=== PATIENT | female | born 1940 | race Caucasian/White ===

== ENCOUNTER → 2016-12-25 | Outpatient (CLI) | payer OTHER, BC | LOC: CAT 09:28 | DX: J44.1 Chronic obstructive pulmonary disease with (acute) exacerbation (principal); R91.1 Solitary pulmonary nodule ==

== ENCOUNTER → 2017-03-27 | Outpatient (CLI) | payer OTHER, BC | LOC: CAT 10:17 | DX: R06.00 Dyspnea, unspecified (principal); R91.1 Solitary pulmonary nodule ==

== ENCOUNTER → 2017-08-02 | Outpatient (CLI) | payer OTHER, BC | LOC: CAT 10:00 | DX: J98.11 Atelectasis (principal); R91.1 Solitary pulmonary nodule ==

== ENCOUNTER → 2017-11-07 | Outpatient (CLI) | payer OTHER, BC | LOC: CAT 10:03 | DX: J43.9 Emphysema, unspecified (principal); R91.1 Solitary pulmonary nodule ==

== ENCOUNTER → 2018-03-20 | Outpatient (CLI) | payer OTHER, BC | LOC: CAT 09:51 | DX: R91.1 Solitary pulmonary nodule (principal); R06.00 Dyspnea, unspecified ==

== ENCOUNTER 2018-09-15 09:29 | Emergency (ER) | payer BC ==
[~2018-09-15] VITALS: Ht 160 cm; Wt 69.0 kg
[2018-09-15] MEDS ORDERED: DIOVAN160 MG PO (09:45)
[2018-09-15] MEDS ORDERED: TRELEGY ELLIPT1 EACH INH (09:45)
[2018-09-15] MEDS ORDERED: PROAIR HFA8.5 GM (09:46)
[2018-09-15] MEDS ORDERED: SPIRONOLACTONE25 M1 PO (09:46)
[2018-09-15] MEDS ORDERED: MUCINEX600 MG PO (09:47)
[2018-09-15] MEDS ORDERED: CENTRUM SILVER1 EAC4 PO (09:47)
[2018-09-15] MEDS ORDERED: VITAMIN B-12500 MCG PO (09:47)
[2018-09-15] MEDS ORDERED: ALL DAY ALLERGY10 M3 PO (09:47)
[2018-09-15] MEDS ORDERED: BETAMETHASONE D50 G2 TOP (09:49)
[2018-09-15] MEDS ORDERED: FLUOROURACIL40 GM (09:49)
[2018-09-15 10:53] VITALS: BP 144/51
[2018-09-15] MEDS ORDERED: ULTRAM 50MG TAB50 MG PO (11:03)
[2018-09-15] MEDS ORDERED: TIZANIDINE HCL4 MG PO (11:03)
== END 2018-09-15 11:14 | disposition home or self-care (01) ==
LOC: ER 09:29
DX: S20.229A Contusion of unspecified back wall of thorax, initial encounter (principal); Z98.890 Other specified postprocedural states; W00.0XXA Fall on same level due to ice and snow, initial encounter; Y93.89 Activity, other specified; Y92.89 Other specified places as the place of occurrence of the external cause; Y99.8 Other external cause status

== ENCOUNTER 2018-09-18 15:40 | Inpatient (IN) | payer BC ==
[~2018-09-18] VITALS: Ht 160 cm; Wt 68.5 kg
[~2018-09-18 15:40] MED LIST: ALL DAY ALLERGY10 M3 PO; BETAMETHASONE D50 G2 TOP; CENTRUM SILVER1 EAC4 PO; DIOVAN160 MG PO; FLUOROURACIL40 GM; MUCINEX600 MG PO; PROAIR HFA8.5 GM; SPIRONOLACTONE25 M1 PO; TIZANIDINE HCL4 MG PO; TRELEGY ELLIPT1 EACH INH; ULTRAM 50MG TAB50 MG PO; VITAMIN B-12500 MCG PO
[2018-09-18 16:13] LABS: ABSOLUTE NEUTROPHILS 8.7 thou/uL (1.4-8.2); BASOPHILS 0.5 % (0.0-2.0); EOSINOPHILS 1.4 % (0.0-3.0); HEMATOCRIT 36.9 % (37.0-47.0); HEMOGLOBIN 12.8 gm/dL (12.0-15.0); LYMPHOCYTES 12.1 % (24.0-44.0); MCH 32.5 pg (26.0-34.0); MCHC 34.7 g/dL (28.0-37.0); MCV 93.5 fL (80.0-100.0); MONOCYTES 9.1 % (1.0-8.0); PLATELET COUNT 161 thou/uL (150-400); POLYS 76.9 % (36.0-66.0); RBC 3.95 mil/uL (4.20-5.00); RDW 12.4 % (10.5-14.5); WBC 11.3 thou/uL (4.0-11.0)
[2018-09-18 16:16] LABS: CALCIUM 8.8 mg/dL (8.5-10.1); CREATININE 2.8 mg/dL (0.6-1.0)
[2018-09-18 16:21] LABS: ALBUMIN 3.4 g/dL (3.4-5.0); DIRECT BILIRUBIN 0.1 mg/dL (<0.1-0.3); TOTAL BILIRUBIN 0.4 mg/dL (<0.1-1.0); TOTAL PROTEIN 7.4 g/dL (6.4-8.2)
[2018-09-18 17:34] VITALS: BP 143/52
[2018-09-18 18:16] VITALS: BP 114/54
[2018-09-18 20:30] VITALS: BP 137/59
--- NOTE | 2018-09-19 01:21 | NUR ---
Assumed care of pt at 1900. Pt alert and oriented x4. C/o pain in lower back. supervisor filtration notified and new orders noted. Heating pad ordered for back pain as well. Pt tried to eat dinner but was unable to keep it down for long. States she has had the pain and n/v since Friday 09/15. Will continue to monitor and assist with needs.
[2018-09-19 04:30] VITALS: BP 133/47
[2018-09-19 05:45] LABS: CALCIUM 8.1 mg/dL (8.5-10.1); CREATININE 2.1 mg/dL (0.6-1.0)
[2018-09-19 07:00] VITALS: BP 121/53
--- NOTE | 2018-09-19 10:43 | NUR ---
PT ADMITTED RELATED TO FALL,INTRACTABLE N/V,DEHYDRATION. CM REVIEWED CHART AND SPOKE WITH CARE TEAM. CM MET WITH PT AND GRANDTR MARY AT BEDSIDE THIS DAY. PT IS A&O X4. CM ROLE INTORDUCED. PT INDICATED SHE LIVES IN A HOUSE WITH HER GRANDTR WITH 2 STEPS TO ENTER AND NO STEPS INSIDE. 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 PT INDICATED NO DME OR HH HX. PT INDICATED SHE PLANS TO RETURN HOME ONCE MEDICALLY STABLE. CM TO FOLLOW INDICATED WITH DC PLANNING.
--- NOTE | 2018-09-19 14:42 | NUR ---
ASSUMED PT CARE AT 0700. PT A&O X4. PT STATED NO N/V. PT STATES PAIN WHILE MOVING. PT TOLERATES MEDS. PT ABLE TO AMBULATE TO BATHROOM AND HALLWAY. PT ON STANDBY ASSIST. PT DESATS ON AMBULATION AND CURRENTLY ON NC AT 2.0L. PT CALL LIGHT WITHIN REACH AND CONTINUES TO BE MONITORED FOR SAFETY.
[2018-09-19 16:20] VITALS: BP 122/47
[2018-09-19 21:45] VITALS: BP 126/50
--- NOTE | 2018-09-20 01:19 | NUR ---
Assumed care of pt at 1900. Pt a&o x4. Prn pain meds administered due to c/o back pain. Pt requests a lidocaine patch to be ordered. termination clerk notified and new order noted. SBA to the restroom. Pt home oitments administered on nose and right foot. Will continue to monitor and assist with needs.
[2018-09-20 04:15] VITALS: BP 150/73
[2018-09-20 05:46] LABS: CALCIUM 8.5 mg/dL (8.5-10.1); CREATININE 1.2 mg/dL (0.6-1.0); POTASSIUM 3.7 mmol/L (3.5-5.1)
--- NOTE | 2018-09-20 07:39 | NUR ---
ASSUMED PT CARE AT APPROX 0300.PT UP WITH SBA.ON 2L/NC.PER RT,PT REQUESTED FOR HER INHALER AND AM NURSE HAS BEEN UPDATED TO CALL PHYSICIAN FOR AN ALTERNATIVE SINCE THIS FACILITY DOESN'T CARRY WHAT SHE IS ON.PT CONT ON IVF.NO CONCERNS NOTED.
[2018-09-20 08:15] VITALS: BP 155/47
--- NOTE | 2018-09-20 09:33 | NUR ---
PT IS A&0X4, C/O MID BACK, ASKS FOR PAIN MEDICATION, ENCOURAGED HER WITH TRYING TO PASS THIS MED FREQUENTLY PRESCRIBED, ENCOURAGED HER TO USE CALL LIGHT FOR ANY NEEDS, FAMILY VISITING, PT SHOWERING, AMB STEADY.
[2018-09-20] MEDS ORDERED: HYDROCODONE-AP1 EAC6 PO (11:50)
[2018-09-20 12:33] VITALS: BP 155/47
--- NOTE | 2018-09-20 15:55 | NUR ---
PT D/C'D IN W/C WITH DAUGHTER AND STAFF, AND MED HELD IN XIS (SIGNED PAPER SHOWING RECEIPT) SUCCESSFULLY EARLIER IN THE DAY
== END 2018-09-20 13:30 | disposition home or self-care (01) | DRG 684 ==
LOC: ER 15:40 → 4E 17:15 → EROBS 17:15 → 4E 18:41
PROVIDERS: Nurse Practitioner; ADMIT Family Medicine
DX: N17.9 Acute kidney failure, unspecified (principal); E86.0 Dehydration; F17.210 Nicotine dependence, cigarettes, uncomplicated; M81.0 Age-related osteoporosis without current pathological fracture; Z98.42 Cataract extraction status, left eye; Z98.41 Cataract extraction status, right eye; Z79.899 Other long term (current) drug therapy
CPT/HCPCS: 10783

== ENCOUNTER 2018-10-02 06:39 | Inpatient (IN) | payer BC ==
[~2018-10-02] VITALS: Ht 160 cm; Wt 70.3 kg
--- NOTE | ~2018-10-02 | P ---
[facility] [place] [address] PROCEDURE REPORT Name: ADDY SOMMERSALDMARCOS Epstein Room #: 220-P [facility] IN M.R.#: [id number] Admission: 10/02/18 Attend Phys: Osiel Watson MD Discharge: Date of : 42 Report #: [id number] THIS REPORT FOR: //name// CC: Osiel Watson MD DATE OF SERVICE: 10/03/2018 BRIEF HISTORY: The patient is a 78-year-old woman who had a fall on the ice 3 weeks ago. She had been taking ibuprofen and Tylenol No. 3 for pain. She also had been using ibuprofen. She subsequently developed problems with nausea and vomiting as well as chest pressure. She also developed some pleural effusion requiring thoracentesis. PREOPERATIVE DIAGNOSIS: Dysphagia and chest pressure. POSTOPERATIVE DIAGNOSES: 1. Moderate Alberto esophagitis. 2. Diffuse gastritis. MEDICATIONS: Deep sedation with propofol per anesthesia. SPECIMENS: 1. Biopsies, gastric mucosa, rule out H. pylori. 2. Brushing esophagus, rule out candidiasis. ESTIMATED BLOOD LOSS: 3 mL. PROCEDURE: EGD with biopsy and esophageal brushing. FINDINGS: Prior to propofol sedation, the procedure of upper endoscopy was discussed with the patient as well as potential risks, benefits and complications. She indicates she understands and desires to proceed. DESCRIPTION OF PROCEDURE: With the patient in the left lateral decubitus position, the Olympus video endoscope was inserted in the cervical esophagus under direct vision without difficulty. Examination of the esophagus throughout its entire length revealed moderate whitish plaque-like material throughout the mid and distal esophagus consistent with diffuse Alberto esophagitis. The intervening mucosa was normal. I did not see any ulcers, erosions, strictures or masses. The scope was advanced and she was noted to have a 2-3 cm sliding type hiatus hernia. The mucosa and hernia was unremarkable. The scope was advanced into the stomach, which was examined on end view as well as retroflexed views. There was erythema in the antrum, a few scattered erosions were seen in the antrum. No ulcers were seen. Upon retroflexion, no abnormalities were seen. The pylorus, duodenal bulb and postbulbar sweep were all inspected and [facility] [address] [place] [address] PROCEDURE REPORT Name: LORRAINE SOMMERS Room #: 220-P [facility] IN [facility].#: [id number] Admission: 10/02/18 Attend Phys: Osiel Watson MD Discharge: Date of : 42 Report #: [id number] noted to be unremarkable. At that point, scope was slowly withdrawn and careful circumferential views were obtained. Biopsies were obtained of the gastritis and brushings obtained of the alberto. DISPOSITION: The patient with difficulty swallowing and some discomfort with swallowing as well as chest pressure. She has an exudative process consistent with candidiasis. She had no symptoms prior to her fall. The etiology of her candidiasis is not entirely clear. However, it is noted she does use fluticasone, which may put her at risk. We will start her on Diflucan and follow up on brushings. Since she does use fluticasone, it is not clear if this is related to her recent fall. By: 1201 [id number] Colt Garcia MD /nt
[2018-10-02 06:39] VITALS: BP 188/86
[~2018-10-02 06:39] MED LIST changes: +HYDROCODONE-AP1 EAC6 PO
[2018-10-02 08:07] LABS: ABSOLUTE NEUTROPHILS 10.3 thou/uL (1.4-8.2); BASOPHILS 0.6 % (0.0-2.0); EOSINOPHILS 1.8 % (0.0-3.0); HEMOGLOBIN 12.5 gm/dL (12.0-15.0); LYMPHOCYTES 11.2 % (24.0-44.0); MCH 32.4 pg (26.0-34.0); MCHC 34.6 g/dL (28.0-37.0); MCV 93.6 fL (80.0-100.0); MONOCYTES 8.6 % (1.0-8.0); PLATELET COUNT 268 thou/uL (150-400); POLYS 77.8 % (36.0-66.0); RBC 3.85 mil/uL (4.20-5.00); RDW 13.2 % (10.5-14.5); WBC 13.2 thou/uL (4.0-11.0)
[2018-10-02 08:14] LABS: ANION GAP 11 mmol/L (7-16); BUN 8 mg/dL (7-18); CALCIUM 9.8 mg/dL (8.5-10.1); CHLORIDE 102 mmol/L (98-107); CO2 28 mmol/L (21-32); CREATININE 0.8 mg/dL (0.6-1.0); GLUCOSE 106 mg/dL (74-106); SODIUM 141 mmol/L (136-145)
[2018-10-02 08:22] LABS: ALBUMIN 3.7 g/dL (3.4-5.0); LIPASE 54 U/L (73-393); SGOT 28 U/L (15-37); SGPT 22 U/L (30-65); TOTAL BILIRUBIN 0.7 mg/dL (<0.1-1.0); TOTAL PROTEIN 7.5 g/dL (6.4-8.2); TROPONIN-I <0.06 ng/mL (<0.06)
[2018-10-02 08:47] LABS: URINE BILIRUBIN NEGATIVE (Negative); URINE BLOOD TRACE (Negative); URINE CLARITY CLEAR; URINE COLOR YELLOW; URINE GLUCOSE-RANDOM* NEGATIVE (Negative); URINE KETONES TRACE (Negative); URINE LEUKOCYTES-REFLEX NEGATIVE (Negative); URINE NITRITE-REFLEX NEGATIVE (Negative); URINE PROTEIN (DIPSTICK) NEGATIVE (Negative); URINE UROBILINOGEN 0.2 E.U./dl (0.2-1.0)
--- NOTE | 2018-10-02 09:24 | EKG ---
[address] [address] [place] [address] ELECTROCARDIOGRAM REPORT Name: LORRAINE SOMMERS [id number] Admission: 10/02/18 Attend Phys: Discharge: Date of : 42 Report #: [id number] THIS REPORT FOR: //name// [facility] ED Test Date: 2018-10-02 Test Time: 08:14:39 Pat Name: LORRAINE SOMMERS Department: Room: Gender: F Political Cartoonist: : 1940 Requested By: Eze Crow Order Number: [id number] MD: Caleb Lopez Measurements Intervals [place] Rate: 85 P: 85 [place]: 151 QRS: 91 QRSD: 78 T: 55 QT: 375 QTc: 446 Interpretive Statements Sinus rhythm with atrial premature complexes Anterior infarct, age indeterminate No previous ECG available for comparison Electronically Signed On 10-02-2018 9:23:50 COMPUTER EDUCATION TEACHER by Caleb Lopez [email or web address] <ELECTRONICALLY SIGNED> By: Caleb Lopez MD, [facility] 10/02/18 0923 0814 3 Caleb Lopez MD, FACC /EPI
[2018-10-02 10:45] VITALS: BP 163/68
[2018-10-02 11:04] VITALS: BP 116/61
--- NOTE | 2018-10-02 11:18 | NUR ---
CALLED 4E TO GIVE REPORT AT 1115 WAS ASKED TO CALL BACK IN 10-15 MIN
[2018-10-02 11:44] VITALS: BP 185/87
--- NOTE | 2018-10-02 12:39 | NUR ---
PT ARRIVED ON UNIT FROM ED AT 1200. PT WAS A/OX4 WITH NO ISSUES OR CONCERNS AT THIS TIME. PT HAS NO COMPLAINTS OF PAIN. WILL CONTINUE TO MONITOR PT. AWAITING ON US
[2018-10-02 15:07] LABS: INR 1.1; PROTIME 11.3 Seconds (9.3-11.4)
[2018-10-02 16:12] LABS: CLARITY CLOUDY; COLOR YELLOW; SOURCE RIGHT CHEST; TOTAL VOLUME 60 mL
[2018-10-02 16:33] LABS: BF NUCLEATED CELLS 1185; BF RBC 668
[2018-10-02 16:34] VITALS: BP 153/63
[2018-10-02 17:37] LABS: BF MACROPHAGE 22; BF NEUTROPHILS 14
[2018-10-02 19:38] VITALS: BP 183/84
--- NOTE | 2018-10-02 23:52 | NUR ---
pt is alert and oriented x4 , presents with a pleasant affect,slightly anxious due to shortness of breath especially after activities. reports upper abdominal pain and has utilized tylenol,needs stand by assist with adls, reports poor appetite,last bm three days ago.had scheduled egd ,continues of ivf,oxygen at 2l/nc. pt had thoracentesis on today,site clean with no bleading.
[2018-10-03 06:24] LABS: HEMATOCRIT 35.2 % (37.0-47.0); MCV 94.1 fL (80.0-100.0); RBC 3.74 mil/uL (4.20-5.00); RDW 13.1 % (10.5-14.5); WBC 9.8 thou/uL (4.0-11.0)
[2018-10-03 07:08] VITALS: BP 157/75
--- NOTE | 2018-10-03 11:03 | NUR ---
ASSUMED CARE OF PATIENT THIS MORNING. PATIENT IS A&OX4. SHE IS UP WITH STANDBY ASSISTANCE. EGD SCHEDULED FOR THIS MORNING AND PATIENT CURRENTLY OFF UNIT FOR PROCEDURE. RIGHT AC IV IS CURRENTLY SALINE LOCKED. SHE IS ON 2 LITER OF O2. PATIENT CURRENTLY NPO AND ALL MORNING MEDICATIONS WERE HELD. PATIENT HAS DIMINISHED LUNG SOUNDS. ACTIVE BOWEL SOUNDS. LAST BOWEL MOVEMENT WAS 09/29. WILL CHECK WITH PHYSICIAN TO SEE IF SOMETHING CAN BE PRESCRIBED FOR THE PATIENT.
[2018-10-03 14:11] LABS: BODY FLUID ALBUMIN 1.5 g/dL (()); BODY FLUID AMYLASE 32 U/L (()); BODY FLUID GLUCOSE 87 mg/dL (()); BODY FLUID LDH 118 IU/L (())
[2018-10-03 20:19] VITALS: BP 133/65
--- NOTE | 2018-10-04 05:41 | NUR ---
ASSUMED CARE OF PATIENT AT 1900. VSS. ASSESSMENT COMPLETED AT 2155. PT ASLEEP ENTIRE SHIFT. ABLE TO WAKE UP AND ANSWER QUESTIONS APPROPRIATELY. NO C/O N/V OR PAIN. NO SOA NOTED THIS SHIFT. CONTINUES ON O2 @ 2.0L VIA NC WITH SPO2 @ 94%. ABLE TO CALL OUT APPROPRIATELY. CALL LIGHT WITHIN REACH. BED LOCKED AND IN LOWEST POSITION. WCTM.
--- NOTE | 2018-10-04 05:45 | NUR ---
THIS NURSE AGREES WITH ASSESSMENT AND NOTES FROM BEAM DYER DURING THE NIGHT.
[2018-10-04] MEDS ORDERED: FLUCONAZOLE 10100 MG PO (08:01)
[2018-10-04 08:21] VITALS: BP 137/72
--- NOTE | 2018-10-04 08:25 | NUR ---
ASSUMED PT CARE AT 0700. PT AWAKE, ALERT/ORIENTED X4. UP WALKING AROUND ROOM WITH NO DIFFICULTIES. O2 92% ON ROOM AIR. DENIES SHORTNESS OF AIR. NO COUGH. DENIES PAIN WELL. ASSESSMENT IS CHARTED WITH CRACKLES NOTED TO BASES OF LUNGS. IV REMOVED DC ORDERS HAVE BEEN ENTERED. VITAL SIGNS STABLE. WILL DISMISS AFTER BREAKFAST.
[2018-10-04 09:17] VITALS: BP 137/72
[2018-10-04 11:09] LABS: BODY FLUID LDH 151 IU/L (())
[2018-10-05 08:07] LABS: BODY FLUID ALBUMIN 1.6 g/dL (()); BODY FLUID AMYLASE 32 U/L (()); BODY FLUID GLUCOSE 138 mg/dL (())
[2018-10-06 09:05] LABS: SOURCE CHEST
[2018-10-06 09:05] LABS: SOURCE CHEST
--- NOTE | 2018-10-06 16:06 | PATH ---
[facility] [address] [place] [address] PATHOLOGY RPT PROCEDURE Name: LORRAINE TERAN Room #: 220-P [facility] IN M.R.#: [id number] Admission: 10/02/18 Date of : 42 Discharge: 10/04/18 Report #: [id number] Path Case #: [id number] [facility] Accession Number: [id number] . 01 Material submitted: . BX GASTRITIS R/O H PYLORI . 01 Clinical history: . Pre-OP DX: Nausea, vomiting Post-OP DX: Gastritis, alberto . 02 Diagnosis: Gastric mucosa, gastritis, endoscopic biopsy: - Mild active gastritis with features of reactive gastropathy. - Negative for intestinal metaplasia or atrophy. - Negative for Helicobacter pylori (properly controlled immunohistochemical stain performed). (IUV:clothing supervisor; 10/06/2018) MBR/10/06/2018 . 02 Electronically signed: . Ashley U Vadlamani, MD, Pathologist NPI- [id number] . 01 Gross description: . Received in formalin labeled "Lorraine Teran, BX gastritis, rule out H. pylori," are 6 segments of tomas soft tissue measuring 1.5 x 0.9 x 0.2 cm in aggregate dimensions and ranging from 0.2 to 0.5 cm in maximum dimension. The specimen is submitted entirely in cassette A1. (TSD; 10/03/2018) TOB/TOB . 02 Pathologist provided ICD-10: K29.60, K31.9 . 02 CPT . 952823, M60729 Specimen Comment: A courtesy copy of this report has been sent to Specimen Comment: [phone], . Specimen Comment: Report sent to / DR BERMUDEZ Performed at: [address] [id number] MD Dameon Taylor MD Phone: [phone] Performed at: [address] [id number] [address] [address] PATHOLOGY RPT PROCEDURE Name: LORRAINE TERAN Room #: 220-P [facility] IN M.R.#: [id number] Admission: 10/02/18 Date of : 42 Discharge: 10/04/18 Report #: [id number] Path Case #: [id number] MD Ashley Nash MD Phone: [phone]
--- NOTE | 2018-10-07 11:08 | PATH ---
[facility] [address] [place] [address] PATHOLOGY RPT PROCEDURE Name: LORRAINE SOMMERS Room #: 220-P [facility] IN .R.#: [id number] Admission: 10/02/18 Date of : 42 Discharge: 10/04/18 Report #: [id number] Path Case #: [id number] Note [facility] Accession Number: [id number] TESTS RESULT FLAG UNITS REF RANGE LAB Clinician Provided Cytology Information No. of containers..01 Other (Miscellaneous) Source: ESOPHAGEAL BRUSHING DIAGNOSIS: 02 ESOPHAGEAL BRUSHING NEGATIVE FOR MALIGNANT CELLS. REACTIVE SQUAMOUS CELLS ARE PRESENT. FUNGAL ORGANISMS MORPHOLOGICALLY CONSISTENT WITH "VALENCIA" SPECIES ARE PRESENT. FEW BACTERIAL AGGREGATES PRESENT, CANNOT EXCLUDE ORAL LEIGHANN. Signed out by: 02 Ashley Nash MD, Pathologist NPI- [id number] Performed by: 01 Dewey Bone, Meter Repairer ([facility]) Gross description: 01 .5ML, COLORLESS, CLEAR /LCS FLAG LEGEND: L-Low Normal,H-High Normal,LL-Alert Low,HH-Alert High <-Panic Low,>-Panic High,A-Abnormal,AA-Critical Abnormal Performed at: [address] [place] [address] Dameon Taylor MD, [address] [place] [id number] Ashley Nash MD, Specimen Comment: A courtesy copy of this report has been sent to Specimen Comment: [phone]. Specimen Comment: A duplicate report has been generated due to demographic updates. Performed at: [address], [place], [place] [id number] MD Dameon Taylor MD Phone: [phone]
--- NOTE | 2018-10-07 15:06 | PATH ---
[facility] [address] [place] [address] PATHOLOGY RPT PROCEDURE Name: LORRAINE SOMMERS Room #: 220-P [facility] IN M.R.#: [id number] Admission: 10/02/18 Date of : 42 Discharge: 10/04/18 Report #: [id number] Path Case #: [id number] Note [facility] Accession Number: [id number] TESTS RESULT FLAG UNITS REF RANGE LAB Clinician Provided Cytology Information No. of containers..01 Other (Miscellaneous) Source: PLEURAL FLUID DIAGNOSIS: 02 PLEURAL FLUID INCONCLUSIVE. REACTIVE MESOTHELIAL CELLS ARE PRESENT. THIS INTERPRETATION INCLUDES EVALUATION OF A CELL BLOCK. NO MALIGNANT EPITHELIAL CELLS PRESENT. Comment: Numerous small lymphocytes are present. These may represent chronic inflammatory cells. Small portion of the pleural fluid is sent to [facility] for flow cytometric analysis. An addendum will be issued with those results. Signed out by: 02 Ashley Nash MD, Pathologist NPI- [id number] Performed by: 01 Lulu Weston, Meteorology Instructor ([facility]) Gross description: 01 25 ML, YELLOW, CLOUDY /LCS FLAG LEGEND: L-Low Normal,H-High Normal,LL-Alert Low,HH-Alert High <-Panic Low,>-Panic High,A-Abnormal,AA-Critical Abnormal Performed at: [address] [facility] [address] [place] [address] Dameon Taylor MD, [address] [address] Ashley Nash MD, Specimen Comment: A courtesy copy of this report has been sent to Specimen Comment: [phone]. Specimen Comment: Report sent to Performed at: [address], [place], [place] [id number] [address] [address] PATHOLOGY RPT PROCEDURE Name: LORRAINE SOMMERS Room #: 220-P [facility] IN M.R.#: [id number] Admission: 10/02/18 Date of : 42 Discharge: 10/04/18 Report #: [id number] Path Case #: [id number] MD Dameon Taylor [place] Phone: [phone]
== END 2018-10-04 10:00 | disposition home or self-care (01) | DRG 369 ==
LOC: ER 06:39 → EROBS 10:30 → SICU 10:30 → 4E 11:04 → SICU 18:15 → DELTRNSPT 10-03 09:13 → ENTRNSPT 10-03 09:13 → SICU 10-04 10:00
PROVIDERS: Emergency Medicine; Nurse Practitioner; Pediatrics; ADMIT Family Medicine
PROC: 0W993ZZ Drainage of Right Pleural Cavity, Percutaneous Approach (ICD-10-PCS; principal; 2018-10-02)
PROC: 0DB68ZX Excision of Stomach, Via Natural or Artificial Opening Endoscopic, Diagnostic (ICD-10-PCS; 2018-10-03)
PROC: 0DD58ZX Extraction of Esophagus, Via Natural or Artificial Opening Endoscopic, Diagnostic (ICD-10-PCS; 2018-10-03)
PROC: 0W9B3ZZ Drainage of Left Pleural Cavity, Percutaneous Approach (ICD-10-PCS; 2018-10-03)
DX: B37.81 Candidal esophagitis (principal); J90 Pleural effusion, not elsewhere classified; K56.7 Ileus, unspecified; J98.11 Atelectasis; M81.0 Age-related osteoporosis without current pathological fracture; E87.6 Hypokalemia; M54.9 Dorsalgia, unspecified; G89.29 Other chronic pain; I10 Essential (primary) hypertension; R09.02 Hypoxemia; K29.70 Gastritis, unspecified, without bleeding; K44.9 Diaphragmatic hernia without obstruction or gangrene; F17.210 Nicotine dependence, cigarettes, uncomplicated; W00.0XXA Fall on same level due to ice and snow, initial encounter; J44.9 Chronic obstructive pulmonary disease, unspecified; Z98.42 Cataract extraction status, left eye; Z98.41 Cataract extraction status, right eye; Z98.891 History of uterine scar from previous surgery; Z90.49 Acquired absence of other specified parts of digestive tract; Z79.51 Long term (current) use of inhaled steroids; Z79.899 Other long term (current) drug therapy; Z86.010 Personal history of colon polyps; Z91.81 History of falling; Y93.89 Activity, other specified; Y92.89 Other specified places as the place of occurrence of the external cause; Y99.8 Other external cause status
CPT/HCPCS: 15002; 62110; 62900; 70005

== ENCOUNTER → 2019-03-19 | Outpatient (CLI) | payer BC ==
[~2019-03-19] MED LIST changes: +FLUCONAZOLE 10100 MG PO
== END ==
LOC: MRI 10:26
DX: M51.25 Other intervertebral disc displacement, thoracolumbar region (principal); M51.27 Other intervertebral disc displacement, lumbosacral region; M51.26 Other intervertebral disc displacement, lumbar region; M48.061 Spinal stenosis, lumbar region without neurogenic claudication; M12.88 Other specific arthropathies, not elsewhere classified, other specified site

== ENCOUNTER → 2019-04-14 | Outpatient (CLI) | payer MEDICARE ==
[~2019-04-14] VITALS: Ht 160 cm; Wt 58.9 kg
[~2019-04-14] MED LIST changes: +HYDROCODON-ACE1 EAC7 PO; +MACULAR HEALTH1 EAC1 PO; +METHOCARBAMOL500 M2 PO; +MOBIC7.5 MG PO; +OTEZLA30 MG PO; -VITAMIN B-12500 MCG PO; +VITAMIN D3 PO
[2019-04-14 14:22] VITALS: BP 140/58
--- NOTE | 2019-04-14 14:47 | NUR ---
Pain Clinic Assessment: 1. History of Osteoarthritis: BACK History of Rheumatoid Arthritis: Not Applicable 2. Height: 5 ft. 3 in. 160.0 cm. Weight: 129.8 lb. oz. 58.877 kg. Patient's BMI: 23.0 3. Vital Signs: BP: 140/58 Pulse: 91 Resp: 16 Temp: 02 Sat: 100 ECG Mon: 4. Pain Intensity: 4 5. Fall Risk: Dizziness: Y Needs help standing or walking: N Fallen in the last 3 months: N Fall risk comments: 6. Patient on Blood Thinner: None 7. History of Hypertension: N 8. Opioid Therapy greater than 6 weeks: N Opiate Contract Signed: 9. Risk Assessment Tool Provided: LOW RISK 0/3 10. Functional Assessment Tool: 11. Recreational Drug Use: Never Drug Type: Tobacco Use: Current Every Day Smoker Tobacco Type: Cigarettes Amount or Packs/day: 1/2 DAY How Many Years: 60 Alcohol Use: No Frequency: Quant:
--- NOTE | 2019-04-15 08:14 | HPC ---
[facility] [address] [place] [address] PAIN MANAGEMENT CONSULTATION Name: LORRAINE SOMMERS [facility]: [id number] Admission: 04/14/19 Attend Phys: Filemon Vargas DO Discharge: Date of : 41 Report #: [id number] THIS REPORT FOR: //name// CC: Filemon Watson MD DATE OF SERVICE: 04/14/2019 REFERRING PHYSICIAN: Osiel Watson MD CHIEF COMPLAINT: Mid back pain. HISTORY OF PRESENT ILLNESS: As you know, the patient is a pleasant 78-year-old female who reports acute onset of mid back pain that began after a slip and fall injury sustained on the ice in September of this year. The patient stated she was in her normal state of health until this slip and fall injury occurred. She was brought to the Emergency Department where x-ray imaging was obtained. There did not appear to be any acute changes. She was subsequently discharged home. She returned less than 1 week later with continued pain. She underwent imaging again, again no specific findings though they did find a chronic T11 compression fracture. She was subsequently discharged home after hospitalization for GI issues that self-resolved. The patient has trialled conservative treatment options, but yet has not improved. She underwent MRI imaging of the lumbar spine, though the patient reports her symptoms are in the mid thoracic area. There is no radiation of pain into the lumbar spine, nor are there any low back symptoms or lower extremity symptoms. She was subsequently then referred to our clinic to discuss options for treatment for mid back pain. The patient indicates today pain is steady, describes the pain as stabbing. She places current pain score 4/10, daily average at 5/10, worst pain has been 10/10. The patient states that walking, standing exacerbates symptoms, sitting and lying down, tends to improve pain. She reports today with MRI imaging of the lumbar spine, which shows minimal changes, but a noted L1 compression fracture that is well healed as well as the known T11 compression fracture that was well healed. There is also some moderate disk bulging present at the L4-L5 level, but this would not correlate with the patient's mid back symptoms. She has been referred to our service to discuss options for treatment. PAST MEDICAL HISTORY: 1. Hypertension. 2. History of pleural effusions, congestive heart failure. 3. COPD. 4. Emphysema. PAST SURGICAL HISTORY: section. [address] [address] PAIN MANAGEMENT CONSULTATION Name: MATTHIEULORRAINE B [facility] #: REG [facility] [id number] Admission: 04/14/19 Attend Phys: Filemon Vargas DO Discharge: Date of : 41 Report #: [id number] SOCIAL HISTORY: The patient reports 1/2 a pack to 1 pack tobacco per day. She smoked for greater than 60 years. She is denying use of alcohol, IV or illicit drug use. She is retired, not receiving workmen's compensation nor is she trying to obtain disability benefits. She is accompanied by her daughter present in room today. REVIEW OF SYSTEMS: Positive for weight change, decrease in appetite, fatigue and weakness, eye disease, wearing corrective eyewear, cataracts, hearing loss with tinnitus, shortness of breath walking or lying flat, palpitations, frequent and recurrent coughs, asthma, wheezing, emphysema, COPD, change in bowel movements, frequent diarrhea, nocturia, change of force or stream urination, lightheadedness and dizziness, numbness and tingling sensations, tremors, insomnia, heat and cold intolerance, bleeding and bruising tendencies. All other review of systems negative per 12-point review of systems other than those listed in history of present illness. Pain impact score 27/70 indicating [id number] interference of daily activities secondary to pain. ALLERGIES: No known drug allergies. CURRENT MEDICATIONS: Otezla 30 mg twice a day, valsartan 160 mg once a day, vitamin D3 2000 units once a day, Allergy Relief 10 mg once a day and Trelegy Ellipta 1 puff daily. IMAGING: MRI of lumbar spine shows compression fracture at T11, well healed. No evidence of marrow edema, no retropulsion. T12-L1, mild disk space loss, no central canal or neuroforaminal stenosis. L1-L2, superior endplate compression fracture, well healed, unchanged from September imaging. No marrow edema, no retropulsion. L2-L3, loss of disk height, mild disk bulge, minimal central canal stenosis, no neuroforaminal stenosis. L4-L5 disk space loss. No significant volume loss from a disk standpoint. AP diameter of the canal is normal. L5-S1, minimal disk bulge, no evidence of protrusion, no central canal or neuroforaminal stenosis. 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 No rheumatoid arthritis. She is placing pain intensity 4/10. She is not a fall risk, has not had a fall in last 3 months. She is not on blood thinners. She is not treated for hypertension. She is not on chronic opioids. She has a low opioid addiction potential based on our assessment tool. She is placing a pain impact score 24/70, [id number] interference of daily activities secondary to pain. PHYSICAL EXAMINATION: VITAL SIGNS: Blood pressure 140/58, pulse 91, respiratory rate 16 and unlabored. The patient is 100% on room air. Height 5 feet 3 inches tall, weight 129.8 pounds, BMI calculated 23.0. [facility] [address] [place] [address] PAIN MANAGEMENT CONSULTATION Name: LORRAINE SOMMERS Room #: [facility]#: [id number] Admission: 04/14/19 Attend Phys: Filemon Vargas DO Discharge: Date of : 41 Report #: [id number] GENERAL: Well-developed, well-nourished, well-hydrated 78-year-old female, appearing stated age. She is in mild distress secondary to pain, placing current pain score 4/10. HEENT: Normocephalic, atraumatic. Pupils equal, round, reactive to light. Extraocular muscles are intact. NEUROLOGIC: Speech is fluent. The patient deemed a good historian. LUNGS: Clear, no wheezes, rhonchi or rales, prolonged expiratory phase noted. There is no pain with deep inhalation and exhalation. CARDIOVASCULAR: Regular. No appreciable gallop, no rub. ABDOMEN: Soft, nontender, nondistended, normoactive bowel sounds. EXTREMITIES: Show no clubbing, no cyanosis, and no edema. MUSCULOSKELETAL: There is palpatory tenderness over the mid thoracic area around T7 through T9. There are no skin changes, lesions or ecchymosis over the area. No spinous process tenderness. Deep palpation of the area causes intensification of pain, which does radiate in a radicular like pattern towards the anterior chest. Valsalva test does cause similar findings. Upper extremity strength is symmetrical, but deconditioned. She is intact to light touch from C5 through T1 dermatomes. Lower extremity strength is equal and symmetrical, 5/5, though deconditioned. Muscle bulk and tone is symmetrical on looking at the lower extremities in comparison. Seated straight leg raising negative. Supine straight leg raising negative. MADDISON'S test is negative. Modified Gaenslen's positive for some axial low back pain. ASSESSMENT: 1. Thoracic pain. 2. Possible thoracic radiculopathy. 3. Myofascial symptoms. PLAN: 1. Based on today's physical exam and history the patient has provided, the description the patient uses in regards to pain as well as the location of symptoms and the distribution of symptoms radiating from the mid thoracic area around the anterior chest wall bilaterally and towards the xiphoid process, the source of the patient's pain appears to be thoracic in origin. There is some concern of thoracic radiculopathy. The patient and I had a discussion today about the findings of her MRI. I am pleased to advise the patient that her lumbar spine appears fairly typical for her age and her consistent smoking activity. There is no specific lateralizing feature in the area that would be consistent with the pain generator in the mid thoracic area. There was question about whether or not the patient's bilateral lower extremity weakness is due to findings in the lumbar spine. This is simply not the case, as the patient has no significant central canal stenosis that would be leading to bilateral lower extremity weakness. Other sources could be vascular in origin or possibly some type of other neurologic issue, but it is not related to central canal stenosis. In regards to the patient's thoracic pain, further evaluation would be necessary. [facility] [address] [place] [address] PAIN MANAGEMENT CONSULTATION Name: LORRAINE SOMMERS Room #: PRO [place]#: [id number] Admission: 04/14/19 Attend Phys: Filemon Vargas, Discharge: Date of : 41 Report #: [id number] 2. Recommend the patient to undergo x-ray imaging of the thoracic spine. X-ray imaging will provide us information about the bony structures in the area. I am concerned about thoracic radiculopathy, and thus, the likely next imaging study will be an MRI. We will review the findings of the x-ray imaging once available. If these are not sufficient to be able to determine the source of symptoms, we would recommend the patient undergo a thoracic MRI without contrast. Thoracic imaging via an MRI will give us information about the thoracic disks as well as the nerve root positioning and whether or not compressive forces are acting to cause not only the thoracic radicular symptoms the patient has been experiencing with radiation to the anterior chest on what appears to be a T7 distribution, but will also potentially determine if there is some central canal stenosis that may be the source of the patient's lower extremity weakness. We will have the patient undergo the x-ray imaging. If this is not sufficient in providing diagnostic information, we will move forward with an MRI of the thoracic spine. 3. We have agreed to provide the patient with a short dosing of medication for pain control. We have given the patient hydrocodone 5/325 one tab p.o. q.6 hours p.r.n. for pain. I have given the patient 60 tablets total. She was advised to take the medication only as directed. She is not to take more than 3 tablets per day to 4 tablets a day. She is to watch for side effects of sleepiness, disorientation, confusion, mental slowing and constipation. If she notes side effects, discontinue immediately. 4. The patient will contact our clinic tomorrow about the findings of the x-ray imaging. If required, we will then have the patient undergo the MRI of the thoracic spine for further evaluation. We wish to thank Dr. Watson for the referral of the patient to our clinic. We will keep you apprised of response to treatment as we continue the evaluation and workup for her thoracic-generated pain. Again, we wish to thank you for the opportunity to see the patient in consultation. <ELECTRONICALLY SIGNED> By: Filemon Vargas DO 04/15/19 0814 [id number] Filemon Vargas DO /nt
== END ==
LOC: PAIN 07:01 → RAD 07:01
DX: M43.8X4 Other specified deforming dorsopathies, thoracic region (principal); J44.9 Chronic obstructive pulmonary disease, unspecified; I11.0 Hypertensive heart disease with heart failure; I50.9 Heart failure, unspecified

== ENCOUNTER → 2019-04-17 | Outpatient (CLI) | payer MEDICARE | LOC: MRI 10:29 | DX: M48.54XA Collapsed vertebra, not elsewhere classified, thoracic region, initial encounter for fracture (principal); M47.24 Other spondylosis with radiculopathy, thoracic region; M51.14 Intervertebral disc disorders with radiculopathy, thoracic region ==

== ENCOUNTER → 2019-04-21 | Outpatient (CLI) | payer MEDICARE ==
[~2019-04-21] VITALS: Ht 160 cm; Wt 59.0 kg
[2019-04-21 09:36] VITALS: BP 146/62
--- NOTE | 2019-04-21 09:49 | NUR ---
Pain Clinic Assessment: 1. History of Osteoarthritis: BACK History of Rheumatoid Arthritis: Not Applicable 2. Height: 5 ft. 3 in. 160.0 cm. Weight: 130.0 lb. oz. 58.968 kg. Patient's BMI: 23.0 3. Vital Signs: BP: 146/62 Pulse: 96 Resp: 14 Temp: 02 Sat: 100 ECG Mon: 4. Pain Intensity: 5 5. Fall Risk: Dizziness: Y Needs help standing or walking: N Fallen in the last 3 months: N Fall risk comments: 6. Patient on Blood Thinner: None 7. History of Hypertension: N 8. Opioid Therapy greater than 6 weeks: N Opiate Contract Signed: 9. Risk Assessment Tool Provided: LOW RISK 0/3 10. Functional Assessment Tool: 11. Recreational Drug Use: Never Drug Type: Tobacco Use: Current Every Day Smoker Tobacco Type: Cigarettes Amount or Packs/day: 1/2 How Many Years: 70 Alcohol Use: No Frequency: Quant:
--- NOTE | 2019-04-22 07:46 | HPC ---
[facility] [address] [place] [address] PAIN MANAGEMENT CONSULTATION Name: LORRAINE SOMMERS Room #: REG [facility] [id number] Admission: 04/21/19 Attend Phys: Filemon Vargas DO Discharge: Date of : 41 Report #: [id number] THIS REPORT FOR: //name// CC: Filemon Watson MD DATE OF SERVICE: 04/21/2019 CHIEF COMPLAINT: Mid back pain. HISTORY OF PRESENT ILLNESS: As you know, the patient is a very pleasant 78-year-old female who was referred to our service for acute onset of mid back pain that began after a slip and fall injury sustained on the ice in September 2018. The patient suffered a vertebral compression fracture, which was noted on imaging study. She continues to experience mid back pain with radiation in a radicular fashion towards the anterior chest. We saw the patient in consultation on 04/14/2019, sent the patient for further imaging of the thoracic areas. There was a concern of possible increase in retropulsion and compression at the site. She returns today to review the MRI and to discuss treatment options further. She is placing pain score at 5/10. She denies new injury or trauma since our last visit. ALLERGIES: No known drug allergies. CURRENT MEDICATIONS: Otezla 30 mg twice a day, valsartan 160 mg once a day, vitamin D3 2000 units once a day, Allergy Relief 500 mg once a day, Trelegy Ellipta 1 puff once a day. SOCIAL HISTORY: The patient continues to smoke half pack to 1 pack per day. She smoked for greater than 60 years. Denies IV or illicit drug use. Denies any chronic alcohol use. She is retired. She is accompanied by daughter present in room today. IMAGING: MRI of thoracic spine obtained 04/17/2019 shows marked compression fracture within the thoracic spine, which was present on the October 2018 chest films. There is superior wedging of the lower thoracic vertebral bodies also seen in the 10/04/2018 study. Marked compression of the mid thoracic spine shows a low T1 signal in the marrow represent sclerosis and loss of the normal fatty marrow. Lower thoracic fractures appear stable. There is noted retropulsion of the posterior endplate of the mid thoracic fracture. PQRS: The patient has arthritic changes of lumbar spine and cervical spine. No rheumatoid arthritis. Pain intensity today 5/10. She is not a fall risk, has not had a fall in the last 3 months. She is not on blood thinners, not treated for hypertension. She is not on opioid. She has a low opioid addiction [address] [address] PAIN MANAGEMENT CONSULTATION Name: LORRAINE SOMMERS Room #: REG [facility]#: [id number] Admission: 04/21/19 Attend Phys: Filemon Vargas DO Discharge: Date of : 41 Report #: [id number] potential based on our assessment tool. She is placing pain impact at 41/70, moderate to severe interference of daily activities secondary to pain. PHYSICAL EXAMINATION: VITAL SIGNS: Blood pressure 146/62, pulse 96, respiratory rate 14 and unlabored. The patient is 100% on room air. Height 5 feet 3 inches tall, weight 130 pounds, BMI calculated 23.0. GENERAL: Well-developed, well-nourished, well-hydrated acutely kyphotic 78-year-old female appearing stated age, pain is rated today at around 5/10. HEENT: Normocephalic, atraumatic. Pupils equal, round, reactive to light. EXTREMITIES: Show no clubbing, no cyanosis, and no edema. MUSCULOSKELETAL: The patient has tenderness to palpation in the mid upper thoracic area. No spinous process tenderness. Deep palpation of the area causes intensification of pain with what appears to be likely radicular like pattern towards the anterior chest. Valsalva maneuver does not cause any significant changes today. Upper extremity strength is symmetrical, but deconditioned. ASSESSMENT: 1. Thoracic pain. 2. Compression fracture of the thoracic spine. 3. Thoracic radiculopathy. 4. Myofascial pain. PLAN: 1. The patient has returned today in followup visit where we have reviewed her MRI in its entirety. It does not appear she has significant neuropathic impingement upon the nerve roots exiting the thoracic spine. There is noted retropulsion of the posterior elements of the vertebral body at the compression fracture site. This is causing some abutment of the cord that may be the source of the patient's symptoms currently. It does not appear to be an acute fracture. The findings would indicate chronic with sclerosis changes in the anterior wedging portion of this fracture. After we reviewed the patient's MRI, we were able to provide some suggestions for treatment. The following was discussed with the patient today. 2. We discussed at length physical therapy, stretching exercise, core strengthening and a concerted effort at trying to return the patient to more anatomically correct position. Bracing was discussed, but this will not help the current fracture, which has healed in position and has significantly degraded anterior wedge position, which would leave the patient in a kyphotic stance permanently. Bracing could provide some adjustment in the upper thoracic area, but would only be noted to have improvement while in the bracing system as soon as she comes off the bracing system, the fracture will require more kyphotic stature. Unfortunately, this fracture is old enough that no augmentation can be performed. I do not at this point recommend any type of bracing system given its propensity that lead to weakness of the paraspinal [facility] [address] [place] [address] PAIN MANAGEMENT CONSULTATION Name: CELESTINO SOMMERSMARCOS Epstein Room #: REG [facility].#: [id number] Admission: 04/21/19 Attend Phys: Filemon Vargas DO Discharge: Date of : 41 Report #: [id number] musculature of the thoracic and lumbar area leading to more complications in time. 3. We would recommend physical therapy, stretching exercises, core strengthening and we will provide the patient with a prescription to begin at least twice a week for 6 weeks and possibly longer. This will help the patient to obtain strength in the paraspinal musculature of the upper thoracic, lower thoracic and lumbar area. This should assist in providing the patient a more erect posture and reducing the kyphosis secondary to the compression fracture in the mid thoracic area. With strengthening of the paraspinal musculature, there should be some improvement in pain. We will start this process immediately. She was given a prescription today. 4. The majority of the patient's pain appears to be myofascial in origin. This does appear to be related to the compression fracture of the mid thoracic area. She has pain radiating upward on the paraspinal musculatures as well as caudad from the paraspinal areas down towards the lumbar region. These appear to be spasming of the paraspinal musculature. We will provide the patient with a prescription for methocarbamol 500 mg dose 1 tab p.o. t.i.d. for muscle spasming. I have given the patient #90 tablets with 2 refills. The patient was advised to watch for side effects of sleepiness, disorientation, confusion, mental slowing while on the medication. She is not to drive or operate heavy equipment while utilizing this medication. 5. We will start the patient on an anti-inflammatory in the form of meloxicam 7.5 mg 1 tab p.o. b.i.d. This will provide baseline pain control and anti-analgesic effects. We will give the patient #60 tablets, 2 refills. She was advised of the risks and benefits of this medication. We did advise the patient will watch for dyspepsia, worsening of blood pressure, lower extremity edema and we have also warned the patient about the cardiac risk that come with anti-inflammatory medications including aspirin. She was given this prescription with 2 refills. 6. We will see the patient back in followup visit on an as needed basis. Interventional treatment such as injections will not be beneficial given the fracture has completely healed and there does not appear to be any neuropathic component to the patient's symptoms currently. Interventional treatment such as epidural injections will provide no significant improvement in the symptoms, she is currently experiencing though she does begin to experience more neuropathic signal and pain, epidural might be beneficial. 7. We will be returning the patient's care to her PCP for further evaluation. We wish to thank Dr. Watson for the opportunity to see the patient in consultation. Re-adjustments of some medication should be quite beneficial. We will see her back on an as needed basis. <ELECTRONICALLY SIGNED> By: Filemon Vargas DO 04/22/19 0746 [id number] Filemon Vargas DO /nt
== END ==
LOC: PAIN 06:48
DX: M48.54XA Collapsed vertebra, not elsewhere classified, thoracic region, initial encounter for fracture (principal); M54.14 Radiculopathy, thoracic region; M79.18 Myalgia, other site

== ENCOUNTER → 2019-05-13 | Outpatient (CLI) | payer MEDICARE ==
[~2019-05-13] VITALS: Ht 160 cm; Wt 59.0 kg
--- NOTE | 2019-05-15 10:37 | P ---
[facility] [place] [address] [address] [place] [address] PROCEDURE REPORT Name: LORRAINE SOMMERS Room #: REG [facility] Warner#: [id number] Admission: 05/13/19 ������������������ Attend Phys: Davie Thorne Discharge: ������������������ Date of : 41 Report #: [id number] THIS REPORT FOR: //name// CC: Davie Whyte Iker YESICA Laureano DATE OF SERVICE: 05/13/2019 PROCEDURE PERFORMED: Colonoscopy with polypectomies. HISTORY OF PRESENT ILLNESS: The patient is a 78-year-old female with history of colon polyps 4 years ago, recently has been having increasing symptoms of intermittent fecal urgency and incontinence. She describes her stools during these episodes as being soft. Denies any significant diarrhea. She has tried Imodium for several weeks without much improvement. She does eat fiber in general. There is no family history of colon cancer. She denies any blood in her stools. She has had a previous , but no history of urinary incontinence. Recent stool studies have been negative reportedly. Plan is for colonoscopy. DESCRIPTION OF PROCEDURE: The risks and benefits of the procedure were explained to the patient, those risks including but not limited to bleeding, perforation and the risk of sedation. She understood these risks and gave informed consent. Sedation was given using propofol per anesthesia. Next, a digital rectal exam was initially performed, which was normal. Next, using a pediatric Olympus colonoscope, the scope was placed in the patient's anus and advanced under direct vision to the cecum. The overall prep was excellent. In the cecum, there was a 4 mm sessile polyp. This was removed by cold forceps. The ileocecal valve was normal in appearance. Random colon biopsies were obtained to rule out the possibility of microscopic colitis. In the ascending colon, 2 polyps were noted, one was 4 mm, removed by cold forceps, the other was 6 and removed by snare cautery. The descending colon was normal. Multiple diverticula were noted in the sigmoid colon. Also noted was a 4 mm sessile polyp. This was also removed by cold forceps. The rectal mucosa was normal. On retroflexion, small nonbleeding internal hemorrhoids were noted. No abnormalities otherwise of the anal canal was noted. No evidence of anal fissure. The scope was then withdrawn and the procedure terminated. The patient tolerated the procedure well. IMPRESSION: 1. Multiple small colonic polyps as described above. 2. Sigmoid diverticulosis. 3. Internal hemorrhoids. 4. Otherwise, normal colonoscopy. [address] [address] PROCEDURE REPORT Name: MATTHIEULORRAINE Room #: REG [facility]#: [id number] Admission: 05/13/19 ������������������ Attend Phys: Davie Thorne Discharge: ������������������ Date of : 41 Report #: [id number] RECOMMENDATIONS: 1. Await biopsy results. 2. The patient with recent trial of Imodium and fiber and stool studies all have been negative. Continues to have intermittent fecal incontinence. I would recommend a consultation with Colorectal Surgery for further evaluation, if biopsies are negative for microscopic colitis. Thank you for allowing me to participate in her care. ��������������������������������������������� <ELECTRONICALLY SIGNED> ���������������������������������������� By: Davie Cuellar MD ��������������������������������������������� 05/15/19 1037 [id number] Davie Cuellar MD /nt
--- NOTE | 2019-05-15 17:09 | PATH ---
[facility] [place] [address] PATHOLOGY RPT PROCEDURE Name: MATTHIEULORRAINE B Room #: REG PRICILA Bower.#: [id number] ������������������ Admission: 05/13/19 ������������������ Date of : 42 Discharge: Report #: [id number] Path Case #: [id number] [facility] Accession Number: [id number] . 01 Material submitted: . PART A: colon - POLYP AT ASCENDING COLON X2. Modifiers: ascending PART B: cecum - POLYP AT CECUM PART C: colon - RANDOM COLON BX PART D: sigmoid colon - POLYP AT SIGMOID COLON . 01 Clinical history: . Preop DX: hx polyps, fecal incontinance Postop DX: colon polyps, diverticulosis C. R/O microscopic colitis . 02 Diagnosis: A. Polyp x2, ascending colon, endoscopic biopsy: - Tubular adenoma identified in multiple fragments. - Negative for high-grade dysplasia. . B. Polyp, at cecum, endoscopic biopsy: - Tubular adenoma. - Negative for high-grade dysplasia. . C. Large intestine mucosa, random, R/O microscopic colitis, endoscopic biopsy: - One fragment showing a hyperplastic polyp; negative for dysplasia. - Remainder of fragments showing nonspecific reactive changes. - Negative for microscopic colitis. - Negative for dysplasia or malignancy. . D. Polyp, sigmoid colon, endoscopic biopsy: - Minute fragment compatible with a hyperplastic polyp and a lymphoid aggregate. - Negative for dysplasia. (IUV:megan; 05/15/2019) S 05/15/2019 1110 Local . 02 Comment: Sections of colon biopsy tissues show crypts at regular intervals and no increase in cellularity of lamina propria. There are no granulomas. The collagen layer underneath the epithelium is not thickened. There is no distortion in crypt architecture as well. There is no evidence of dysplasia. (IUV:megan; 05/15/2019) . 02 Electronically signed: . [address] [address] PATHOLOGY RPT PROCEDURE Name: LORRAINE TERAN Room #: REG PRICILA Hylton#: [id number] ������������������ Admission: 05/13/19 ������������������ Date of : 42 Discharge: Report #: [id number] Path Case #: [id number] Ashley Nash MD, Pathologist NPI- [id number] . 01 Gross description: . A. Received in formalin labeled "Lorraine Teran, polyp at ascending colon x2," are six fragments of tomas soft tissue measuring 0.8 x 0.5 x 0.3 cm in aggregate dimensions and ranging from 0.1 to 0.5 cm in maximum dimension. The specimen is submitted entirely in cassette A1. The smallest fragment may not survive processing. . B. Received in formalin labeled "Lorraine Teran, polyp at cecum," are two segments of tomas-brown soft tissue measuring 0.3 x 0.2 x 0.1 cm and 0.3 x 0.3 x 0.3 cm in greatest dimensions. The specimen is submitted entirely in cassette B1. . C. Received in formalin labeled "Lorraine Teran, random colon BX R/O microscopic colitis," are four segments of tomas soft tissue measuring 0.9 x 0.6 x 0.2 cm in aggregate dimensions and ranging from 0.4 to 0.9 cm in maximum dimension. The specimen is submitted entirely in cassette C1. . D. Received in formalin labeled "Lorraine Teran, polyp at sigmoid colon," is a segment of tomas-brown soft tissue measuring 0.4 x 0.3 x 0.2 cm in greatest dimensions. The specimen is submitted entirely in cassette D1. ([facility]; 05/14/2019) XDC/XDC 05/14/2019 1136 Local . 02 Pathologist provided ICD-10: D12.2, D12.0, K63.5 . 02 CPT . 333828, 565500, 211538, 926043 Specimen Comment: A courtesy copy of this report has been sent to Specimen Comment: [phone], . Specimen Comment: Report sent to / DR PILLAI Performed at: [address], [place] [id number] MD Dameon Taylor MD Phone: [phone] Performed at: [address] [id number] MD Ashley Nash MD Phone: [phone]
== END | disposition home or self-care (01) ==
LOC: GI 07:58
DX: D12.2 Benign neoplasm of ascending colon (principal); D12.0 Benign neoplasm of cecum; K63.5 Polyp of colon; K57.30 Diverticulosis of large intestine without perforation or abscess without bleeding; K64.8 Other hemorrhoids; I10 Essential (primary) hypertension; J43.9 Emphysema, unspecified; F17.210 Nicotine dependence, cigarettes, uncomplicated; Z98.890 Other specified postprocedural states; Z86.010 Personal history of colon polyps; Z98.41 Cataract extraction status, right eye; Z98.42 Cataract extraction status, left eye; Z79.899 Other long term (current) drug therapy; Z79.891 Long term (current) use of opiate analgesic
CPT/HCPCS: 62110; 62900

== ENCOUNTER → 2019-06-22 | Outpatient (CLI) | payer MEDICARE | LOC: CAT 13:19 | DX: J43.9 Emphysema, unspecified (principal); J98.4 Other disorders of lung; R91.1 Solitary pulmonary nodule ==

== ENCOUNTER → 2019-08-21 | Outpatient (CLI) | payer MEDICARE | LOC: RAD 15:06 | DX: J98.4 Other disorders of lung (principal); L40.0 Psoriasis vulgaris; M43.8X4 Other specified deforming dorsopathies, thoracic region; M43.8X6 Other specified deforming dorsopathies, lumbar region; Z79.899 Other long term (current) drug therapy ==

== ENCOUNTER → 2019-09-21 | Outpatient (CLI) | payer MEDICARE | LOC: NUC 01:38 | DX: N91.2 Amenorrhea, unspecified (principal); Z78.0 Asymptomatic menopausal state; Z87.81 Personal history of (healed) traumatic fracture ==

== ENCOUNTER → 2020-06-21 | Outpatient (CLI) | payer MEDICARE | LOC: CAT 06-16 09:17 | PROVIDERS: ATTEND Nurse Practitioner | DX: S22.050A Wedge compression fracture of T5-T6 vertebra, initial encounter for closed fracture (principal); J43.9 Emphysema, unspecified; R91.1 Solitary pulmonary nodule; J98.4 Other disorders of lung; X58.XXXA Exposure to other specified factors, initial encounter; Y93.89 Activity, other specified; Y92.89 Other specified places as the place of occurrence of the external cause; Y99.8 Other external cause status ==

== ENCOUNTER → 2021-06-20 | Outpatient (CLI) | payer MEDICARE | LOC: CAT 10:06 | PROVIDERS: ATTEND Pediatrics | DX: R91.1 Solitary pulmonary nodule (principal); J43.9 Emphysema, unspecified; F17.200 Nicotine dependence, unspecified, uncomplicated ==